=== PATIENT | male | born 2000 | race Two or more races ===

== ENCOUNTER 2022-03-10 08:54 | Outpatient (REF) | payer OTHER, SELFPAY ==
[2022-03-10 09:54] LABS: COVID-19 Test Negative (Negative); IDNOW Serial# 16C4AD1C
== END 2022-03-10 08:55 | disposition home or self-care (01) ==
LOC: HO.LAB 08:54
PROVIDERS: Visit Provider Internal Medicine
DX: Z20.822 Contact with and (suspected) exposure to COVID-19 (principal)
CPT/HCPCS: 87635; C9803

== ENCOUNTER 2022-04-24 10:59 | Outpatient (REF) | payer OTHER, SELFPAY ==
[2022-04-24 11:48] LABS: COVID-19 Test Positive (Negative); IDNOW Serial# 9DB6401D
== END 2022-04-24 11:00 | disposition home or self-care (01) ==
LOC: HO.LAB 10:59
PROVIDERS: Visit Provider Internal Medicine
DX: Z20.822 Contact with and (suspected) exposure to COVID-19 (principal)
CPT/HCPCS: 87635; C9803